=== PATIENT | male | born 1975 | race Caucasian/White ===

== ENCOUNTER 2022-08-02 16:49 | Emergency (ER) | payer OTHER, SELFPAY ==
[2022-08-02 16:55] VITALS: BP 124/112; PULSE 90; RESP 18; TEMP 37.1; O2SAT 99; BMI 26.6
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
[2022-08-02 17:15] VITALS: PULSE 112; O2SAT 96
[2022-08-02 17:17] VITALS: BP 142/121; PULSE 120; O2SAT 96
[2022-08-02] MEDS: ACETAMINOPHEN 500 MG TABLET 1000 MG PO (17:25)
[2022-08-02 17:35] VITALS: PULSE 106; O2SAT 94
[2022-08-02 17:40] VITALS: PULSE 100; O2SAT 95
[2022-08-02 17:48] VITALS: BP 128/90
--- NOTE | 2022-08-02 17:49 | PC.NURSE ---
pt declines further monitoring, per Dr Chaparro MCGOVERN to call off TTA monitoring, pt joining in room 6
== END 2022-08-02 19:45 | disposition home or self-care (01) ==
PROVIDERS: Emergency Provider Emergency Medicine Emergency Medical Services
DX: M54.9 Dorsalgia, unspecified (principal); R07.9 Chest pain, unspecified; V53.5XXA Driver of pick-up truck or van injured in collision with car, pick-up truck or van in traffic accident, initial encounter
CPT/HCPCS: 70450; 71250; 72125; 74176; 99284; 99291; A9270; G0390